=== PATIENT | female | born 1970 | race Asian ===

== ENCOUNTER 2020-05-20 13:19 | Inpatient (IN) | payer MEDICAID ==
[~2020-05-20] VITALS: Ht 180.3 cm; Wt 117.9 kg
[2020-05-20] MEDS ORDERED: DILTIAZEM HCL 5MG/ML 5ML VIAL IV ONE (14:00)
[2020-05-20 15:05] LABS: BASOPHILS % 0.2 % (0.0-2.0); EOSINOPHILS % 1.5 % (0.0-5.0); HEMATOCRIT. 46.1 % (36.0-48.0); HEMOGLOBIN. 15.7 g/dL (12.0-16.0); LYMPHOCYTES % 19.6 % (20.0-50.0); MEAN CORPUSCULAR HEMOGLOBIN 28.2 pg (28.0-32.0); MEAN CORPUSCULAR VOLUME 82.6 fL (81.0-99.0); MEAN PLATELET VOLUME 8.7 fl (7.4-10.4); MONOCYTES % 4.5 % (2.0-8.0); NEUTROPHILS % 74.2 % (40.0-76.0); PLATELET 269 x1000/uL (130-400); RED BLOOD CELL COUNT 5.58 mill/uL (4.2-5.4); RED CELL DISTRIBUTION WIDTH 13.8 % (11.6-14.6)
[2020-05-20 15:10] LABS: CHLORIDE 105 mEq/L (98-107)
[2020-05-20 15:13] LABS: PROTHROMBIN TIME 10.5 sec (9.6-11.0)
[2020-05-20 16:30] VITALS: BP 133/86
[2020-05-20] MEDS ORDERED: ONDANSETRON HCL 4MG/2ML INJ IV PRN (16:30)
[2020-05-20 16:40] VITALS: BP 133/86
[2020-05-20] MEDS ORDERED: LISI2.5T47 MT (17:21)
[2020-05-20] MEDS ORDERED: ATOR10TA69 MT (17:21)
[2020-05-20] MEDS ORDERED: METF-414 MT (17:21)
[2020-05-20] MEDS: DILTIAZEM HCL 30MG TABLET PO SCH ×2 (17:32→23:54)
[2020-05-20] MEDS: ENOXAPARIN 120MG/0.8ML SYR SUBCUT SCH (17:33)
[2020-05-20] MEDS ORDERED: ATOR40TA70 MT (17:42)
[2020-05-20] MEDS ORDERED: LISI40TA4 MT (17:42)
[2020-05-20] MEDS ORDERED: ATEN50TA PO (17:42)
[2020-05-20 20:00] VITALS: BP 110/57
[2020-05-21] VITALS: BP 123/83
[2020-05-21 04:00] VITALS: BP 119/74
[2020-05-21] MEDS: ENOXAPARIN 120MG/0.8ML SYR SUBCUT SCH ×2 (05:23→17:53)
[2020-05-21] MEDS: DILTIAZEM HCL 30MG TABLET PO SCH ×3 (05:24→18:02)
[2020-05-21] MEDS: ACETAMINOPHEN 325MG TABLET PO PRN ×3 (05:25→16:12)
[2020-05-21 08:23] VITALS: BP 118/68
[2020-05-21] MEDS ORDERED: DEXTROSE 50% WATER 50ML SYRINGE IV PRN (08:30)
[2020-05-21 12:00] VITALS: BP 153/84
[2020-05-21] MEDS: INSULIN LISPRO 100 UNITS/ML SUBCUT SCH ×3 (12:50→22:21)
[2020-05-21] MEDS: BLOOD SUGAR DIAGNOSTIC STRIP TEST SCH ×3 (13:16→21:00)
[2020-05-21] MEDS: PROPAFENONE HCL 150MG TABLET PO SCH ×2 (14:20→22:19)
[2020-05-21 15:33] LABS: CREATINE KINASE MB FRACTION 4.8 ng/mL (0.5-3.6)
[2020-05-21 16:09] VITALS: BP 133/67
[2020-05-21] MEDS: HYDROCODONE/ACETAMINOPHEN 5/325MG TABLET PO PRN ×2 (18:02→23:04)
[2020-05-21 20:00] VITALS: BP 105/63
[2020-05-22] VITALS: BP 112/79
[2020-05-22 04:00] VITALS: BP 116/53
[2020-05-22] MEDS: ENOXAPARIN 120MG/0.8ML SYR SUBCUT SCH (05:13)
[2020-05-22] MEDS: DILTIAZEM HCL 30MG TABLET PO SCH ×2 (06:30)
[2020-05-22] MEDS: PROPAFENONE HCL 150MG TABLET PO SCH (06:30)
[2020-05-22] MEDS: BLOOD SUGAR DIAGNOSTIC STRIP TEST SCH ×2 (06:47→12:20)
[2020-05-22] MEDS: HYDROCODONE/ACETAMINOPHEN 5/325MG TABLET PO PRN (07:22)
[2020-05-22] MEDS: INSULIN LISPRO 100 UNITS/ML SUBCUT SCH ×2 (07:50→12:50)
[2020-05-22 08:00] VITALS: BP 113/58
[2020-05-22] MEDS ORDERED: TOPXL5 MT (11:52)
[2020-05-22] MEDS ORDERED: ASPI325T85 MT (11:52)
[2020-05-22 12:00] VITALS: BP 136/73
[2020-05-22 13:48] VITALS: BP 136/73
[2020-05-22] MEDS ORDERED: METOPROLOL TARTRATE 25MG TABLET PO SCH (21:00)
== END 2020-05-22 14:40 | disposition home or self-care (01) | DRG 201 ==
LOC: ER 13:23 → 6WST 15:05 → ENRESERV 15:57
PROVIDERS: ADMIT Internal Medicine; ATTEND Internal Medicine
DX: I48.20 Chronic atrial fibrillation, unspecified (principal); E78.5 Hyperlipidemia, unspecified; I10 Essential (primary) hypertension; E78.00 Pure hypercholesterolemia, unspecified; E11.9 Type 2 diabetes mellitus without complications; E66.9 Obesity, unspecified; E87.1 Hypo-osmolality and hyponatremia; Z88.8 Allergy status to other drugs, medicaments and biological substances; Z79.84 Long term (current) use of oral hypoglycemic drugs; Z79.899 Other long term (current) drug therapy; Z79.01 Long term (current) use of anticoagulants; Z68.36 Body mass index [BMI] 36.0-36.9, adult
CPT/HCPCS: 36415; 71045; 80053; 82550; 82553; 82962; 83036; 84443; 84484; 85025; 93005; 93306; C1893; J1650; J1815; J3490

== ENCOUNTER 2020-10-02 08:59 | Inpatient (IN) | payer MEDICAID, OTHER ==
[~2020-10-02] VITALS: Ht 152.4 cm; Wt 113.9 kg
[~2020-10-02 08:59] MED LIST: ASPI-867 MT; ATOR40TA70 MT; LISI40TA13 MT; METF-414 MT; TOPXL5 MT
[2020-10-02] MEDS ORDERED: DILTIAZEM HCL 5MG/ML 5ML VIAL IV NR (10:15)
[2020-10-02 10:20] LABS: BASOPHILS % 0.5 % (0.0-2.0); EOSINOPHILS % 1.9 % (0.0-5.0); HEMATOCRIT. 43.7 % (36.0-48.0); HEMOGLOBIN. 14.5 g/dL (12.0-16.0); LYMPHOCYTES % 20.4 % (20.0-50.0); MEAN CORPUSCULAR HEMOGLOBIN 27.5 pg (28.0-32.0); MEAN CORPUSCULAR VOLUME 82.9 fL (81.0-99.0); MEAN PLATELET VOLUME 8.1 fl (7.4-10.4); MONOCYTES % 4.9 % (2.0-8.0); NEUTROPHILS % 72.3 % (40.0-76.0); PLATELET 253 x1000/uL (130-400); RED BLOOD CELL COUNT 5.27 mill/uL (4.2-5.4); RED CELL DISTRIBUTION WIDTH 14.3 % (11.6-14.6)
[2020-10-02 10:25] LABS: CHLORIDE 107 mEq/L (98-107)
[2020-10-02 10:31] LABS: D-DIMER 0.95 mg/L FEU (<0.50); PARTIAL THROMBOPLASTIN TIME 26.8 sec (23.4-31.0); PROTHROMBIN TIME 10.7 sec (9.6-11.0)
[2020-10-02] MEDS: DILTIAZEM HCL 5MG/ML 5ML VIAL IV NR ×3 (10:47→13:01)
[2020-10-02] MEDS ORDERED: PROCAINAMIDE HCL IV SCH (11:30)
[2020-10-02] MEDS ORDERED: DEXTROSE 5% IV SCH (11:30)
[2020-10-02] MEDS ORDERED: WATER IV SCH (11:30)
[2020-10-02] MEDS ORDERED: IOHEXOL-350 100 ML BOTTLE ONE (15:06)
[2020-10-02 16:37] VITALS: BP 135/82
[2020-10-02] MEDS ORDERED: PNEUMOCOCCAL 23-VAL P-SAC VAC 0.5 ML IM ONE (17:00)
[2020-10-02 17:05] VITALS: BP 110/72
[2020-10-02] MEDS ORDERED: *PATIENT'S OWN MEDICATION STORAGE XX SCH (18:15)
[2020-10-02] MEDS ORDERED: ZOLPIDEM TARTRATE 5MG TABLET PO PRN (18:45)
[2020-10-02] MEDS ORDERED: IBUPROFEN 600MG TABLET PO PRN (18:45)
[2020-10-02] MEDS ORDERED: DEXTROSE 50% WATER 50ML SYRINGE IV PRN (18:45)
[2020-10-02 20:00] VITALS: BP 100/60
[2020-10-02] MEDS: ATENOLOL 50 MG TABLET PO SCH (20:51)
[2020-10-02] MEDS: INSULIN LISPRO 100 UNITS/ML SUBCUT SCH (21:10)
[2020-10-02] MEDS: BLOOD SUGAR DIAGNOSTIC STRIP TEST SCH (21:11)
[2020-10-02] MEDS: ATORVASTATIN CALCIUM 40MG TABLET PO SCH (21:11)
[2020-10-02] MEDS: ENOXAPARIN 30MG/0.3ML SYR SUBCUT SCH (21:12)
[2020-10-03] VITALS (7 sets, daily range): BP systolic 106–170; BP diastolic 49–87
[2020-10-03] MEDS: BLOOD SUGAR DIAGNOSTIC STRIP TEST SCH ×4 (06:04→21:37)
[2020-10-03] MEDS: INSULIN LISPRO 100 UNITS/ML SUBCUT SCH ×4 (06:04→21:00)
[2020-10-03 06:25] LABS: BASOPHILS % 0.5 % (0.0-2.0); EOSINOPHILS % 3.4 % (0.0-5.0); HEMATOCRIT. 40.9 % (36.0-48.0); HEMOGLOBIN. 13.6 g/dL (12.0-16.0); LYMPHOCYTES % 28.4 % (20.0-50.0); MEAN CORPUSCULAR HEMOGLOBIN 27.7 pg (28.0-32.0); MEAN CORPUSCULAR VOLUME 83.1 fL (81.0-99.0); MEAN PLATELET VOLUME 7.8 fl (7.4-10.4); MONOCYTES % 8.7 % (2.0-8.0); PLATELET 220 x1000/uL (130-400); RED BLOOD CELL COUNT 4.92 mill/uL (4.2-5.4); RED CELL DISTRIBUTION WIDTH 14.7 % (11.6-14.6)
[2020-10-03 06:28] LABS: CHLORIDE 106 mEq/L (98-107)
[2020-10-03] MEDS: ATENOLOL 50 MG TABLET PO SCH ×2 (09:30→21:00)
[2020-10-03] MEDS: METFORMIN HCL 500MG TABLET PO SCH ×2 (09:30→17:19)
[2020-10-03] MEDS: LISINOPRIL 40MG TABLET PO SCH ×2 (09:30→17:00)
[2020-10-03] MEDS: ENOXAPARIN 30MG/0.3ML SYR SUBCUT SCH (09:31)
[2020-10-03] MEDS: ASPIRIN 81MG TABLET PO SCH (09:31)
[2020-10-03] MEDS ORDERED: APIXABAN 5 MG TABLET PO SCH (11:30)
[2020-10-03 12:11] LABS: T4 FREE 1.29 ng/dL (0.76-1.46)
[2020-10-03] MEDS: APIXABAN 5 MG TABLET PO SCH (17:19)
[2020-10-03] MEDS: CLONIDINE 0.2MG TABLET PO PRN (21:36)
[2020-10-03] MEDS: ATORVASTATIN CALCIUM 40MG TABLET PO SCH (21:36)
[2020-10-04] VITALS (7 sets, daily range): BP systolic 113–179; BP diastolic 39–94
[2020-10-04 00:25] LABS: CREATINE KINASE MB FRACTION 1.9 ng/mL (0.5-3.6)
[2020-10-04 06:08] LABS: CREATINE KINASE MB FRACTION 1.5 ng/mL (0.5-3.6)
[2020-10-04] MEDS: BLOOD SUGAR DIAGNOSTIC STRIP TEST SCH ×4 (06:42→20:48)
[2020-10-04] MEDS: INSULIN LISPRO 100 UNITS/ML SUBCUT SCH ×4 (07:50→20:52)
[2020-10-04] MEDS: METFORMIN HCL 500MG TABLET PO SCH (08:55)
[2020-10-04] MEDS: ATENOLOL 50 MG TABLET PO SCH ×2 (08:57→20:48)
[2020-10-04] MEDS: LISINOPRIL 40MG TABLET PO SCH ×2 (08:57→17:51)
[2020-10-04] MEDS: ASPIRIN 81MG TABLET PO SCH (08:57)
[2020-10-04] MEDS: APIXABAN 5 MG TABLET PO SCH ×2 (08:57→17:51)
[2020-10-04] MEDS: ACETAMINOPHEN 325MG TABLET PO PRN (18:03)
[2020-10-04] MEDS ORDERED: LEVOFLOXACIN 500MG PREMIX 100 ML IV SCH (20:00)
[2020-10-04 20:43] LABS: CLARITY URINE CLEAR (CLEAR); COLOR URINE YELLOW (YELLOW); KETONES URINE NEGATIVE (NEGATIVE); LEUKOCYTE ESTERASE URINE NEGATIVE (NEGATIVE); NITRITE URINE NEGATIVE (NEGATIVE); OCCULT BLOOD URINE TRACE (NEGATIVE); PH URINE 5.5 (4.5-8.0); PROTEIN URINE NEGATIVE (NEGATIVE); SPECIFIC GRAVITY URINE 1.004 (1.005-1.030); UROBILINOGEN URINE 0.2 E.U./dL (0.2-1.0)
[2020-10-04] MEDS: ATORVASTATIN CALCIUM 40MG TABLET PO SCH (20:47)
[2020-10-04] MEDS: CLONIDINE 0.2MG TABLET PO PRN (22:44)
[2020-10-05] VITALS: BP 139/54
[2020-10-05 04:00] VITALS: BP 120/37
[2020-10-05] MEDS: INSULIN LISPRO 100 UNITS/ML SUBCUT SCH ×4 (07:50→21:00)
[2020-10-05 08:00] VITALS: BP 109/68
[2020-10-05] MEDS: BLOOD SUGAR DIAGNOSTIC STRIP TEST SCH ×4 (08:00→21:42)
[2020-10-05] MEDS: ASPIRIN 81MG TABLET PO SCH (08:57)
[2020-10-05] MEDS: ACETAMINOPHEN 325MG TABLET PO PRN ×2 (08:58→18:04)
[2020-10-05] MEDS: APIXABAN 5 MG TABLET PO SCH ×2 (08:58→17:16)
[2020-10-05] MEDS: LISINOPRIL 40MG TABLET PO SCH ×2 (09:00→17:16)
[2020-10-05] MEDS: ATENOLOL 50 MG TABLET PO SCH ×2 (09:00→21:42)
[2020-10-05 11:29] LABS: HEMATOCRIT 38.6 % (36.0-48.0); HEMOGLOBIN 12.7 g/dL (12.0-16.0); MEAN CORPUSCULAR HEMOGLOBIN 27.6 pg (28.0-32.0); MEAN CORPUSCULAR VOLUME 83.9 fL (81.0-99.0); PLATELET 167 x1000/uL (130-400)
[2020-10-05 12:00] VITALS: BP 137/65
[2020-10-05 16:00] VITALS: BP 165/75
[2020-10-05] MEDS: CEFTRIAXONE 1,000 MG in DEXTROSE 5% WATER 50 ML IV SCH (18:08)
[2020-10-05] MEDS ORDERED: VANCOMYCIN 1500MG in DEXTROSE 5% WATER 250ML IV NR (19:30)
[2020-10-05 20:00] VITALS: BP 116/51
[2020-10-05] MEDS: ATORVASTATIN CALCIUM 40MG TABLET PO SCH (21:42)
[2020-10-06] VITALS: BP 120/45
[2020-10-06] MEDS: ACETAMINOPHEN 325MG TABLET PO PRN (00:41)
[2020-10-06 04:00] VITALS: BP 112/51
[2020-10-06] MEDS: BLOOD SUGAR DIAGNOSTIC STRIP TEST SCH ×4 (06:31→21:46)
[2020-10-06 07:43] LABS: BASOPHILS % 0.3 % (0.0-2.0); EOSINOPHILS % 0.9 % (0.0-5.0); HEMATOCRIT. 40.3 % (36.0-48.0); HEMOGLOBIN. 13.3 g/dL (12.0-16.0); LYMPHOCYTES % 11.8 % (20.0-50.0); MEAN CORPUSCULAR HEMOGLOBIN 28.3 pg (28.0-32.0); MEAN CORPUSCULAR VOLUME 85.8 fL (81.0-99.0); MEAN PLATELET VOLUME 8.6 fl (7.4-10.4); MONOCYTES % 9.2 % (2.0-8.0); NEUTROPHILS % 77.8 % (40.0-76.0); PLATELET 159 x1000/uL (130-400); RED CELL DISTRIBUTION WIDTH 14.2 % (11.6-14.6)
[2020-10-06] MEDS: INSULIN LISPRO 100 UNITS/ML SUBCUT SCH ×4 (07:50→21:47)
[2020-10-06 07:52] LABS: CHLORIDE 104 mEq/L (98-107)
[2020-10-06 08:00] VITALS: BP 124/66
[2020-10-06] MEDS: ATENOLOL 50 MG TABLET PO SCH ×2 (09:00→21:45)
[2020-10-06] MEDS: ASPIRIN 81MG TABLET PO SCH (09:15)
[2020-10-06] MEDS: VANCOMYCIN 1 G PREMIX 200 ML IV SCH ×2 (09:15→21:46)
[2020-10-06] MEDS: LISINOPRIL 40MG TABLET PO SCH ×2 (09:15→18:11)
[2020-10-06] MEDS: APIXABAN 5 MG TABLET PO SCH ×2 (09:29→18:11)
[2020-10-06 12:00] VITALS: BP 152/82
[2020-10-06 16:00] VITALS: BP 154/87
[2020-10-06] MEDS: CEFTRIAXONE 1,000 MG in DEXTROSE 5% WATER 50 ML IV SCH (18:13)
[2020-10-06 20:00] VITALS: BP 146/57
[2020-10-06] MEDS: ATORVASTATIN CALCIUM 40MG TABLET PO SCH (21:46)
[2020-10-07] VITALS: BP 146/57
[2020-10-07 04:00] VITALS: BP 125/54
[2020-10-07] MEDS: INSULIN LISPRO 100 UNITS/ML SUBCUT SCH ×4 (06:36→20:34)
[2020-10-07] MEDS: BLOOD SUGAR DIAGNOSTIC STRIP TEST SCH ×4 (06:36→20:14)
[2020-10-07 06:54] LABS: BASOPHILS % 0.3 % (0.0-2.0); CHLORIDE 107 mEq/L (98-107); EOSINOPHILS % 5.3 % (0.0-5.0); LYMPHOCYTES % 21.6 % (20.0-50.0); MEAN PLATELET VOLUME 8.6 fl (7.4-10.4); MONOCYTES % 14.9 % (2.0-8.0); NEUTROPHILS % 57.9 % (40.0-76.0); PLATELET 168 x1000/uL (130-400); RED BLOOD CELL COUNT 4.64 mill/uL (4.2-5.4)
[2020-10-07 08:00] VITALS: BP 136/64
[2020-10-07] MEDS: ATENOLOL 50 MG TABLET PO SCH ×2 (09:00→20:13)
[2020-10-07] MEDS: ASPIRIN 81MG TABLET PO SCH (09:02)
[2020-10-07] MEDS: VANCOMYCIN 1 G PREMIX 200 ML IV SCH (09:02)
[2020-10-07] MEDS: LISINOPRIL 40MG TABLET PO SCH ×2 (09:06→18:37)
[2020-10-07] MEDS: APIXABAN 5 MG TABLET PO SCH ×2 (09:07→18:29)
[2020-10-07 12:00] VITALS: BP 127/60
[2020-10-07] MEDS ORDERED: VANCOMYCIN 1 G PREMIX 200 ML IV SCH (15:00)
[2020-10-07 16:00] VITALS: BP 172/72
[2020-10-07 20:00] VITALS: BP 156/53
[2020-10-07] MEDS: ATORVASTATIN CALCIUM 40MG TABLET PO SCH (20:13)
[2020-10-07] MEDS: CEFAZOLIN 2,000 MG in DEXT 5% WATER 100 ML IV SCH (20:14)
[2020-10-08] VITALS: BP 156/53
[2020-10-08] MEDS: CEFAZOLIN 2,000 MG in DEXT 5% WATER 100 ML IV SCH ×2 (02:03→09:27)
[2020-10-08 06:36] LABS: CHLORIDE 107 mEq/L (98-107)
[2020-10-08] MEDS: BLOOD SUGAR DIAGNOSTIC STRIP TEST SCH ×2 (06:47→12:34)
[2020-10-08 08:00] VITALS: BP 117/56
[2020-10-08] MEDS: APIXABAN 5 MG TABLET PO SCH (08:55)
[2020-10-08] MEDS: ASPIRIN 81MG TABLET PO SCH (08:55)
[2020-10-08] MEDS: LISINOPRIL 40MG TABLET PO SCH (08:55)
[2020-10-08] MEDS: ATENOLOL 50 MG TABLET PO SCH (08:56)
[2020-10-08] MEDS: INSULIN LISPRO 100 UNITS/ML SUBCUT SCH ×2 (08:57→12:34)
[2020-10-08 12:00] VITALS: BP 142/60
[2020-10-08 13:07] VITALS: BP 142/60
== END 2020-10-08 15:16 | disposition home or self-care (01) | DRG 201 ==
LOC: ER 09:17 → 6WST 13:24 → ENRESERV 15:00
PROVIDERS: ADMIT Internal Medicine; ATTEND Internal Medicine
DX: I48.91 Unspecified atrial fibrillation (principal); R78.81 Bacteremia; I82.612 Acute embolism and thrombosis of superficial veins of left upper extremity; E66.01 Morbid (severe) obesity due to excess calories; L03.114 Cellulitis of left upper limb; E11.9 Type 2 diabetes mellitus without complications; B95.61 Methicillin susceptible Staphylococcus aureus infection as the cause of diseases classified elsewhere; E78.00 Pure hypercholesterolemia, unspecified; E78.5 Hyperlipidemia, unspecified; I25.10 Atherosclerotic heart disease of native coronary artery without angina pectoris; Z20.822 Contact with and (suspected) exposure to COVID-19; K59.00 Constipation, unspecified; I10 Essential (primary) hypertension; R77.8 Other specified abnormalities of plasma proteins; Z86.16 Personal history of COVID-19; Z90.49 Acquired absence of other specified parts of digestive tract; Z79.899 Other long term (current) drug therapy; Z79.82 Long term (current) use of aspirin; Z79.84 Long term (current) use of oral hypoglycemic drugs; Z88.8 Allergy status to other drugs, medicaments and biological substances; Z68.42 Body mass index [BMI] 45.0-49.9, adult
CPT/HCPCS: 36415; 71045; 71275; 80048; 80053; 80061; 80202; 81003; 82550; 82553; 82962; 83036; 83880; 84145; 84439; 84443; 84484; 85025; 85027; 85379; 86140; 87077; 87186; 87804; 90732; 93005; 93306; 93971; 99285; J0690; J0696; J1650; J1815; J1956; J2690; J3370; J3490; J7060; Q9967; U0003

== ENCOUNTER 2022-05-24 18:53 | Emergency (ER) | payer MEDICAID, OTHER ==
[~2022-05-24] VITALS: Ht 180.3 cm; Wt 112.3 kg
[2022-05-25 02:33] LABS: BASOPHILS % 0.3 % (0.0-2.0); EOSINOPHILS % 3.1 % (0.0-5.0); HEMATOCRIT. 41.6 % (36.0-48.0); HEMOGLOBIN. 14.2 g/dL (12.0-16.0); LYMPHOCYTES % 18.6 % (20.0-50.0); MEAN CORPUSCULAR HEMOGLOBIN 28.4 pg (28.0-32.0); MEAN CORPUSCULAR VOLUME 83.3 fL (81.0-99.0); MEAN PLATELET VOLUME 8.3 fl (7.4-10.4); MONOCYTES % 6.4 % (2.0-8.0); NEUTROPHILS % 71.6 % (40.0-76.0); PLATELET 271 x1000/uL (130-400); RED BLOOD CELL COUNT 4.99 mill/uL (4.2-5.4); RED CELL DISTRIBUTION WIDTH 14.3 % (11.6-14.6)
[2022-05-25 02:41] LABS: CHLORIDE 106 mEq/L (98-107)
[2022-05-25 03:05] LABS: CLARITY URINE CLEAR (CLEAR); COLOR URINE YELLOW (YELLOW); KETONES URINE NEGATIVE (NEGATIVE); LEUKOCYTE ESTERASE URINE 1+ (NEGATIVE); NITRITE URINE NEGATIVE (NEGATIVE); OCCULT BLOOD URINE NEGATIVE (NEGATIVE); PROTEIN URINE NEGATIVE (NEGATIVE); SPECIFIC GRAVITY URINE 1.022 (1.005-1.030); UROBILINOGEN URINE 0.2 E.U./dL (0.2-1.0)
[2022-05-25] MEDS ORDERED: NITR-87 MT (04:07)
[2022-05-25] MEDS ORDERED: MECL-159 PO (04:07)
[2022-05-25 04:17] VITALS: BP 180/83
== END 2022-05-25 04:20 | disposition home or self-care (01) ==
LOC: ER 18:53
DX: N39.0 Urinary tract infection, site not specified (principal); H81.10 Benign paroxysmal vertigo, unspecified ear; I10 Essential (primary) hypertension; E11.9 Type 2 diabetes mellitus without complications; I48.91 Unspecified atrial fibrillation; Z88.8 Allergy status to other drugs, medicaments and biological substances; Z79.84 Long term (current) use of oral hypoglycemic drugs; Z79.82 Long term (current) use of aspirin
CPT/HCPCS: 36415; 71045; 80053; 81003; 82962; 84484; 85025; 93005; 99285